=== PATIENT | male | born 1965 | race Caucasian/White ===

== ENCOUNTER 2024-12-30 14:32 | Emergency (ER) | payer BC, SELFPAY ==
[2024-12-30 14:32] VITALS: BMI 27.8
[2024-12-30 14:36] VITALS: BP 162/87
[2024-12-30 15:24] VITALS: BP 137/86
[2024-12-30 16:00] VITALS: BP 135/84
--- NOTE | 2024-12-30 16:03 | ED.GENMED ---
History of Present Illness
General
Chief Complaint: Fainting Sensation
Exam Limitations: none
Time Seen by Provider: 12/30/24 15:30
Nursing documentation reviewed up to this point in time: agreed with
History of Present Illness
History of Present Illness:
Patient is a 59-year-old male who presents to the ER for evaluation. Patient was driving around 2 PM when he suddenly felt his heart racing he felt dizzy and felt faint like he was in a pass out.
He had no associated chest pain or shortness of breath. He does have some anxiety and was not sure if he was anxious and having a panic attack. He does report several years ago he was seen at urgent care for palpitations and similar symptoms and
was diagnosed with anxiety. He is not on medicines for anxiety.
He reports since being here symptoms have been intermittent he does feel a sensation off-and-on that his heart is racing.
He has no cardiac history. He does report that he took his Indocin because he has a gout flareup of his right first MTP joint. He has had this flare for the past week. He has an appointment with the boat joiner on Monday.
In addition he has been taking fluconazole weekly for a fungal type rash no other new medicines.
He did have breakfast this morning and did have 2 cups of coffee which is more than normal for him. In addition he feels that he may be dehydrated has not been drinking enough water.
He does report he felt very anxious after the episode and does feel intermittently anxious here.
Past History
Past History
ED Past Medical History: None
ED Past Surgical History: Orthopedic
Social History
Tobacco: Non-smoker
Alcohol: Occasional
Drug: None
Personal:
Living: with family
Employment: Employed
Review of Systems
Review of Systems
Allergies reviewed?: Yes
All Other Systems: ROS reviewed and negative except as documented in HPI and ROS
Constitutional: Reports no symptoms
Cardiac: Reports palpitations; Denies chest pain, diaphoresis or syncope
ABD/GI: Reports no symptoms
: Reports no symptoms
Musculoskeletal: Reports no symptoms
Skin: Reports no symptoms
Psychiatric: Reports no symptoms
Phy Exam
General Physical Exam
General Presentation: no apparent distress
General age: appears stated age
General Skin: warm and dry
General Habitus: normal
General Mental: alert
General Hydration: appears well hydrated
Cardiovascular Exam
Cardiovascular Exam: regular rate/rhythm, no murmur and normal peripheral pulses
Pulmonary Exam
Pulmonary Exam: lungs clear and no respiratory distress
Neurological Exam
Neurological Exam: alert and oriented x3
Musculoskeletal Exam
Musculoskeletal Exam: full ROM and other (Right first MTP with small area of redness tenderness minimal swelling consistent with patient's gout)
Skin Exam
Skin Exam: normal color and warm/dry
Psychiatric Exam
Psychiatric Exam: anxious
Course
Orders/Labs/Results
Orders:
Orders
12/30/24 14:32
ECG [Electrocardiogram (*1)] Urgent
Reason for Study: Palpitations
EKG- Treatment ONCE
12/30/24 16:03
Cardiac Monitoring- Treatment ONCE
IV Insert/Care/Rem.- Treatment PRN
0.9% Sodium Chloride 1000 ml [Nss] 1,000 ml IV BOLUS
12/30/24 16:46
Complete Blood Count/With Diff Urgent
TSH Reflex To Free T4 Urgent
12/30/24 17:15
Comprehensive Metabolic Panel Urgent
Abnormal Lab Results
12/30/24 12/30/24
16:46 17:15
WBC 12.9 H 10^3/uL
(4.8-10.8)
MCH 31.4 H pg
(27.0-31.0)
Abs Immat Gran (auto) 0.1 H 10^3/uL
(0-0.05)
Absolute Neuts (auto) 10.2 H 10^3/uL
(1.4-6.5)
Absolute Monos (auto) 0.8 H 10^3/uL
(0.1-0.6)
Neutrophils % 78.9 H %
(42.2-75.2)
Lymphocytes % 12.8 L %
(20.5-51.1)
Chloride 108 H mmol/L
(98-107)
Glucose 126 H mg/dl
(70-99)
12/30/24 16:46
12/30/24 17:15
Vital Signs
Initial and Last Documented VS:
Initial Vital Signs
Pulse Resp BP Pulse Ox
80 16 162/87 100
12/30/24 14:36 12/30/24 14:36 12/30/24 14:36 12/30/24 14:36
Last Documented Vital Signs
Temp Pulse Resp BP Pulse Ox
97.8 F 77 18 127/84 99
12/30/24 19:15 12/30/24 19:15 12/30/24 19:15 12/30/24 19:11 12/30/24 19:15
MDM/Problems Addressed
Differential Diagnosis Includes:
not limited to:
Palpitations arrhythmia anxiety dehydration
MDM/Problems Addressed:
Patient no acute distress has been in normal sinus rhythm here in the ER with no arrhythmias no complaints of chest pain associated with symptoms. He did feel very anxious afterward and feels that his symptoms may have been attributed to simply
anxiety. in addition he drank more coffee than normal today feels that he may be dehydrated and has not drank enough water . He had complaints of shortness of breath no DVT PE risk factors and no complaints if chest pain.
He is nontachycardic non hypoxic however he is anxious. Patient was given fluids here and remained in normal sinus rhythm without any arrhythmias .
he does have an area of tenderness to his right MTP joint with small amount of redness and is currently taking Indocin for gout and has an appointment with his boat joiner on Monday. His white count is minimally elevated likely from this..
He did feel that he was mildly dehydrated however his renal function is normal.
Patient is in no acute distress well-appearing
Will discharge with outpatient follow-up with cardiology for possible Holter.
He wishes to follow-up with Dr. Morgan group
*Pulse Oximetry
Patient hypoxic: no
*EKG
Interpreted by ED Provider?: Yes
Heart Rate: 81
Rate: normal
Rhythm: sinus
Ischemia: non-specific ST changes
*Critical Care Note
Total Time (30-74mins, 75-104mins- exclusive of procedures): Not Applicable
ED Attending Note
-
Portions of this chart may have been created with voice recognition software.� Occasional wrong word or��sound alike� substitutions may have occurred due to the inherent limitations of voice recognition software.
Discharge Plan
Departure
Patient Disposition: Home (Routine Discharge)
Date of Disposition: 12/30/24
Time of Disposition: 19:11
Patient with high blood pressure during this ER visit?: Yes
Condition: Fair
Covid-19: Not Applicable
Discharge Problem:
Heart palpitations
Instructions: BLOOD PRESSURE, Heart Palpitations
Prescriptions:
No Action
methocarbamol [Robaxin-750] 750 MG tablet
750 mg PO BIDPRN PRN (Reason: pain) Qty: 15 0RF
lidocaine 1 PATCH adhesive patch,medicated
1 patch topical DAILY Qty: 30 0RF
Rx Instructions:
ON FOR 12 HOURS, OFF FOR 12 HOURS
methylprednisolone [Medrol (Yogi)] 4 MG tablets,dose pack
4 tab PO . DIRECT Qty: 1 0RF
Referrals:
Syd Laurent MD [Family Provider] -
Buffy Isidro MD [Active] -
Activity Restrictions/Additional Instructions:
As discussed avoid caffeine, chocolate etc. Stay well-hydrated. Follow-up with family doctor in next several days for reevaluation. I
n addition please call cardiology to make an appointment for reevaluation as well. You may continue to follow-up with your boat joiner as scheduled return if any worsening of symptoms.
Interventions
Interventions:
*Risk Screen - Suicide Last Done: 12/30/24 14:36
*General Assessment Last Done: 12/30/24 15:28
*Neglect/Abuse Screening Last Done: 12/30/24 14:36
*ED- Fall Risk Assessment Last Done: 12/30/24 15:28
*ED COVID-19 Vaccine History Last Done: 12/30/24 15:28
*Nursing Disposition Last Done: 12/30/24 19:25
ED- Cardiac Assessment Last Done: 12/30/24 15:28
ED- Neurological Assessment Last Done: 12/30/24 15:28
Discharge Date and Time
Discharge Date/Time: 12/30/24 19:15
Print Language: ESTONIAN
[2024-12-30] MEDS: NSS 1000 IV (16:48)
[2024-12-30 16:55] LABS: % Basophils 0.7 % (0-2); % Eosinophils 0.7 % (0-6); % Immature Granulocytes 0.5 % (0-0.5); % Lymphocytes 12.8 % (20.5-51.1); % Monocytes 6.4 % (1.7-9.3); % Neutrophils 78.9 % (42.2-75.2); Absolute Basophils 0.1 10^3/uL (0-0.2); Absolute Eosinophils 0.1 10^3/uL (0-0.7); Absolute Immature Granulocytes 0.1 10^3/uL (0-0.05); Absolute Lymphocytes 1.7 10^3/uL (1.2-3.4); Absolute Monocytes 0.8 10^3/uL (0.1-0.6); Absolute Neutrophils 10.2 10^3/uL (1.4-6.5); Hematocrit 47.8 % (39.0-52.0); Hemoglobin 16.6 g/dL (13.0-18.0); Mean Corp Hgb Conc. 34.7 g/dL (33.0-37.0); Mean Corpuscular Hgb 31.4 pg (27.0-31.0); Mean Corpuscular Volume 90.4 fL (80.0-94.0); Mean Platelet Volume 9.8 fL (7.4-10.4); Nucleated Red Blood Cells % 0 % (-); Platelet Count 286 10^3/uL (130-400); Red Blood Cell Count 5.29 10^6/uL (4.70-6.10); Red Cell Dist. Width 12.5 % (11.5-14.5); White Blood Cell Count 12.9 10^3/uL (4.8-10.8)
[2024-12-30 17:00] VITALS: BP 141/83
[2024-12-30 17:37] LABS: ALT (SGPT) 20 U/L (0-50); AST (SGOT) 24 U/L (17-59); Albumin 3.9 g/dl (3.5-5.0); Alkaline Phosphatase 58 U/L (38-126); Blood Urea Nitrogen 17 mg/dl (9-20); Carbon Dioxide 27 mmol/L (22-30); Chloride 108 mmol/L (98-107); Glucose 126 mg/dl (70-99); Potassium 4.6 mmol/L (3.5-5.1); Sodium 138 mmol/L (135-145); Total Bilirubin 0.7 mg/dl (0.2-1.3); Total Protein 6.8 g/dl (6.3-8.2); eGFR > 60.00
[2024-12-30 18:14] VITALS: BP 162/87
[2024-12-30 19:11] VITALS: BP 127/84
[2024-12-30 19:50] LABS: TSH Reflex To Free T4 1.15 uIU/ml (0.47-4.68)
== END 2024-12-30 19:15 | disposition home or self-care (01) ==
LOC: EMR 14:32
PROVIDERS: Nurse Practitioner; EMERGENCY PHYSICIAN Emergency Medicine; FAMILY PHYSICIAN Internal Medicine
DX: R00.2 Palpitations (principal); R55 Syncope and collapse; R03.0 Elevated blood-pressure reading, without diagnosis of hypertension; F41.9 Anxiety disorder, unspecified; M10.071 Idiopathic gout, right ankle and foot; Z79.899 Other long term (current) drug therapy; Z88.0 Allergy status to penicillin
CPT/HCPCS: 99284; 96360; 80053; 84443; 85025; 93005

== ENCOUNTER → 2025-01-31 14:53 | Outpatient (REF) | payer BC, SELFPAY | LOC: RCS 14:53 | PROVIDERS: ATTENDING PHYSICIAN Internal Medicine Cardiovascular Disease; FAMILY PHYSICIAN Internal Medicine | DX: R00.2 Palpitations (principal); R42 Dizziness and giddiness; Z82.49 Family history of ischemic heart disease and other diseases of the circulatory system | CPT/HCPCS: 93306 ==